=== PATIENT | female | born 1935 | race Caucasian/White ===

== ENCOUNTER 2017-08-01 13:10 | Inpatient (IN) | payer MEDICARE, OTHER ==
[~2017-08-01] VITALS: Ht 154.9 cm; Wt 56.9 kg
[2017-08-01] MEDS ORDERED: LISI-600 PO (13:34)
[2017-08-01] MEDS ORDERED: LIONS MANE (13:36)
[2017-08-01] MEDS ORDERED: LOPE-144 PO (13:36)
[2017-08-01] MEDS ORDERED: ESOM40CA30 PO (13:37)
[2017-08-01] MEDS ORDERED: ASPI-611 PO (13:38)
[2017-08-01] MEDS ORDERED: LIDOCAINE PATCH TOP (13:38)
[2017-08-01 14:22] LABS: BASOPHILS % (AUTO) 0.6 % (0-1); EOSINOPHILS % (AUTO) 0 % (0-6); LYMPHOCYTES # (AUTO) 1.7 X10'3 (1.1-4.8); MEAN CORPUSCULAR HEMOGLOBIN 30.9 PG (27.0-31.0); MEAN CORPUSCULAR HGB CONC 33.9 % (33.0-36.5); MEAN CORPUSCULAR VOLUME 91.1 FL (78-98); MEAN PLATELET VOLUME 8.8 FL (7.4-10.4); MONOCYTES # (AUTO) 0.5 X10'3 (0-0.9); MONOCYTES % (AUTO) 6.7 % (2-12); NEUTROPHILS # (AUTO) 5.3 X10'3 (1.8-7.7); NEUTROPHILS % (AUTO) 70.7 % (42-75); PRE OP HEMATOCRIT 40.1 % (35.0-45.0); PRE OP HEMOGLOBIN 13.6 g/dL (12.0-16.0); PRE OP PLATELET COUNT 261 X10'3 (140-440); RED CELL DISTRIBUTION WIDTH 13.4 % (11.5-14.5)
[2017-08-01 14:30] LABS: PRE OP PROTIME 10.5 SECONDS (9.0-12.0)
[2017-08-01 14:40] LABS: ALBUMIN 3.7 G/DL (3.4-5.0); ALBUMIN/GLOBULIN RATIO 1.1 (1.1-1.5); ALKALINE PHOSPHATASE 75 IU/L (46-116); BLOOD UREA NITROGEN 17 MG/DL (7-18); CALCIUM 9.1 MG/DL (8.5-10.1); CHLORIDE 105 MMOL/L (99-107); PRE OP ALT 11 U/L (30-65); PRE OP ANION GAP 6 (8-16); PRE OP AST 13 U/L (10-37); PRE OP BILIRUB, TOTAL 0.3 MG/DL (0.0-1.0); PRE OP GLUCOSE 124 MG/DL (70-104); PRE OP POTASSIUM 3.6 MMOL/L (3.4-5.1); PRE OP SODIUM 142 MMOL/L (135-145); TOTAL CARBON DIOXIDE 30.9 MMOL/L (24-32); TOTAL PROTEIN 7.1 G/DL (6.4-8.2); eGFR 53 ML/MIN
[2017-08-04] VITALS (12 sets, daily range): BP systolic 113–152; BP diastolic 60–98
[2017-08-04] MEDS ORDERED: NORMAL SALINE IV ONE ×2 (05:00→06:00)
[2017-08-04] MEDS ORDERED: TRANEXAMIC ACID IV ONE ×2 (05:00→06:00)
[2017-08-04] MEDS ORDERED: ringers solution, lacted 1,000 ML IV SCH ×2 (05:00→13:16)
[2017-08-04] MEDS ORDERED: vancomycin/NS 1 GM ADD-VANTAGE 250 ML X 1 DOSE IV ONE (05:00)
[2017-08-04] MEDS ORDERED: ceFAZolin 2gm in dextrose, iso 100 ML IV ONE (05:00)
[2017-08-04] MEDS ORDERED: famotidine 20mg tablet PO ONE (05:30)
[2017-08-04] MEDS ORDERED: morphine 4 MG/ML inj SYRINge IV PRN ×2 (13:20)
[2017-08-04] MEDS ORDERED: meperidine/PF 25mg/ml syringe IV PRN ×3 (13:20)
[2017-08-04] MEDS ORDERED: proCHLORperazine 10 MG/2 ml inj IV PRN (13:20)
[2017-08-04] MEDS ORDERED: ondansetron/PF 4mg/2ml inj IV PRN ×2 (13:20→20:45)
[2017-08-04] MEDS ORDERED: vancomycin 1,000mg inj ONE (17:03)
[2017-08-04] MEDS ORDERED: ketorolac trometh. 30mg/ml inj. ONE (17:03)
[2017-08-04] MEDS ORDERED: ROPIVAcaine 0.5% (5mg/ml) 30ml vial ONE ×2 (17:03→18:42)
[2017-08-04] MEDS ORDERED: fentaNYL/PF 50MCG/1 ML 2ML syringe ONE (18:41)
[2017-08-04] MEDS ORDERED: dexamethasone sod phosphate 10mg/ml inj ONE (18:42)
[2017-08-04] MEDS ORDERED: midazolam 2 mg/2 ml injection ONE (18:42)
[2017-08-04] MEDS ORDERED: sevoflurane 250ml liquid IH ONE (18:42)
[2017-08-04] MEDS ORDERED: ondansetron/PF 4mg/2ml inj ONE (18:42)
[2017-08-04] MEDS ORDERED: propofol inj 20 ML IV ONE (18:44)
[2017-08-04] MEDS ORDERED: LIDOcaine 1%/PF 5ML 10 MG/ML VIAL ONE (18:44)
[2017-08-04] MEDS: tranexamic acid inj. 1,000 MG in normal saline 100ml IV soln 90 ML IV SCH ×2 (18:50→19:50)
[2017-08-04] MEDS ORDERED: ePHEDrine 50MG/ML INJ. ONE (19:22)
[2017-08-04] MEDS: potassium cl 20mEq in 1/2 NS 1,000 ML IV SCH (20:43)
[2017-08-04] MEDS ORDERED: acetaminophen 325mg tablet PO PRN (20:45)
[2017-08-04] MEDS ORDERED: oxyCODONE IR 5mg (immed. release) tablet PO PRN (20:45)
[2017-08-04] MEDS ORDERED: diphenhydrAMINE 25mg capsule PO PRN ×2 (20:45)
[2017-08-04] MEDS ORDERED: LOPERAMIDE HCL PO PRN (20:45)
[2017-08-04] MEDS ORDERED: bisacodyl 10mg suppository rectal RC PRN (20:45)
[2017-08-04] MEDS ORDERED: magnesium hydroxide 30ml (MOM) UD suspension PO PRN (20:45)
[2017-08-04] MEDS ORDERED: HYDROmorphone inj. 0.5 MG/0.5 ML DISP.SYRIN IV PRN ×2 (20:45)
[2017-08-04] MEDS: sennosides 8.6mg tablet PO SCH (21:00)
[2017-08-04] MEDS: gabapentin 300mg capsule PO SCH (21:00)
[2017-08-04] MEDS ORDERED: loperamide 2mg capsule PO PRN (21:00)
[2017-08-04] MEDS ORDERED: HYDROmorphone 1 mg/ml syringe IV PRN ×2 (21:01)
[2017-08-04] MEDS ORDERED: tranexamic acid inj. 570 MG in normal saline 100ml IV soln 100 ML IV ONE (23:59)
[2017-08-05] VITALS (8 sets, daily range): BP systolic 107–140; BP diastolic 36–80
[2017-08-05] MEDS: ceFAZolin 1GM/D5W- ADD-VANTAGE 50 ML IV SCH ×2 (01:13→08:28)
[2017-08-05] MEDS: acetaminophen 325mg tablet PO SCH ×4 (03:18→20:22)
[2017-08-05] MEDS: ketorolac tromethamine 15mg/ml inj. IV SCH ×4 (03:19→20:21)
[2017-08-05] MEDS: potassium cl 20mEq in 1/2 NS 1,000 ML IV SCH ×3 (05:13→20:22)
[2017-08-05 07:18] LABS: BASOPHILS % (AUTO) 0 % (0-1); EOSINOPHILS % (AUTO) 0 % (0-6); HEMATOCRIT 35.9 % (35.0-45.0); HEMOGLOBIN 12.3 g/dl (12.0-16.0); LYMPHOCYTES # (AUTO) 0.6 X10'3 (1.1-4.8); LYMPHOCYTES % (AUTO) 5.1 % (21-51); MEAN CORPUSCULAR HEMOGLOBIN 31.9 PG (27.0-31.0); MEAN CORPUSCULAR HGB CONC 34.3 % (33.0-36.5); MEAN CORPUSCULAR VOLUME 92.8 FL (78-98); MEAN PLATELET VOLUME 9.4 FL (7.4-10.4); MONOCYTES # (AUTO) 0.4 X10'3 (0-0.9); MONOCYTES % (AUTO) 3.4 % (2-12); NEUTROPHILS # (AUTO) 10.5 X10'3 (1.8-7.7); NEUTROPHILS % (AUTO) 91.5 % (42-75); PLATELET COUNT 212 X10'3 (140-440); RED BLOOD COUNT 3.87 X10'6 (4.20-5.60); RED CELL DISTRIBUTION WIDTH 12.4 % (11.5-14.5); WHITE BLOOD COUNT 11.5 X10'3 (4.5-11.0)
[2017-08-05 07:44] LABS: ANION GAP 11 (8-16); CHLORIDE 104 MMOL/L (99-107); POTASSIUM 4.1 MMOL/L (3.5-5.1); SODIUM 139 MMOL/L (135-145); TOTAL CARBON DIOXIDE 24.1 MMOL/L (24-32)
[2017-08-05] MEDS ORDERED: vancomycin/NS 1 GM ADD-VANTAGE 250 ML IV SCH (08:00)
[2017-08-05] MEDS: lisinopril 20mg tablet PO SCH (08:00)
[2017-08-05] MEDS ORDERED: non-formulary drug (Aspirin (Aspir 81) 1 TAB) PO SCH (08:00)
[2017-08-05] MEDS: gabapentin 300mg capsule PO SCH ×3 (08:28→20:22)
[2017-08-05] MEDS: aspirin 81mg tablet.DR PO SCH (08:28)
[2017-08-05] MEDS ORDERED: aspirin 325mg tablet PO SCH (08:30)
[2017-08-05] MEDS: oxyCODONE IR 5mg (immed. release) tablet PO PRN (14:21)
[2017-08-05] MEDS: celeCOXIB 100mg capsule PO SCH (20:22)
[2017-08-05] MEDS: sennosides 8.6mg tablet PO SCH (20:22)
[2017-08-06] MEDS: acetaminophen 325mg tablet PO SCH ×2 (02:08→07:38)
[2017-08-06] MEDS: potassium cl 20mEq in 1/2 NS 1,000 ML IV SCH (04:43)
[2017-08-06 06:00] VITALS: BP 122/57
[2017-08-06 06:07] LABS: BASOPHILS % (AUTO) 0.5 % (0-1); EOSINOPHILS # (AUTO) 0.1 X10'3 (0-0.9); HEMATOCRIT 31.6 % (35.0-45.0); HEMOGLOBIN 10.7 g/dl (12.0-16.0); LYMPHOCYTES # (AUTO) 1.5 X10'3 (1.1-4.8); MEAN CORPUSCULAR HEMOGLOBIN 31.1 PG (27.0-31.0); MEAN CORPUSCULAR HGB CONC 33.9 % (33.0-36.5); MEAN CORPUSCULAR VOLUME 91.7 FL (78-98); MEAN PLATELET VOLUME 8.9 FL (7.4-10.4); MONOCYTES # (AUTO) 0.9 X10'3 (0-0.9); MONOCYTES % (AUTO) 9.8 % (2-12); NEUTROPHILS # (AUTO) 6.5 X10'3 (1.8-7.7); NEUTROPHILS % (AUTO) 71.7 % (42-75); PLATELET COUNT 188 X10'3 (140-440); RED BLOOD COUNT 3.45 X10'6 (4.20-5.60); RED CELL DISTRIBUTION WIDTH 13.6 % (11.5-14.5); WHITE BLOOD COUNT 9.1 X10'3 (4.5-11.0)
[2017-08-06] MEDS: celeCOXIB 100mg capsule PO SCH (07:37)
[2017-08-06] MEDS: aspirin 81mg tablet.DR PO SCH (07:37)
[2017-08-06] MEDS: gabapentin 300mg capsule PO SCH (07:37)
[2017-08-06] MEDS: lisinopril 20mg tablet PO SCH (07:38)
[2017-08-06] MEDS: oxyCODONE IR 5mg (immed. release) tablet PO PRN (07:39)
[2017-08-06 10:00] VITALS: BP 115/82
== END 2017-08-06 13:30 | disposition home or self-care (01) | DRG 483 ==
LOC: PAS IN 08-04 12:30 → EDSTATUS 08-04 16:45 → ORTHO 4S 08-04 21:57
PROVIDERS: ADMIT Orthopaedic Surgery; ATTEND Orthopaedic Surgery
PROC: 3E0T3BZ Introduction of Anesthetic Agent into Peripheral Nerves and Plexi, Percutaneous Approach (ICD-10-PCS; 2017-08-04)
PROC: 0LS40ZZ Reposition Left Upper Arm Tendon, Open Approach (ICD-10-PCS; 2017-08-04)
PROC: 0RRK00Z Replacement of Left Shoulder Joint with Reverse Ball and Socket Synthetic Substitute, Open Approach (ICD-10-PCS; principal; 2017-08-04 18:42)
DX: M19.012 Primary osteoarthritis, left shoulder (principal); D62 Acute posthemorrhagic anemia; K21.9 Gastro-esophageal reflux disease without esophagitis; M75.122 Complete rotator cuff tear or rupture of left shoulder, not specified as traumatic; F03.90 Unspecified dementia, unspecified severity, without behavioral disturbance, psychotic disturbance, mood disturbance, and anxiety; I10 Essential (primary) hypertension; Z79.82 Long term (current) use of aspirin; Z79.899 Other long term (current) drug therapy
CPT/HCPCS: 36415; 71046; 80051; 80053; 85025; 85610; 85730; 87070; 97110; 97116; 97162; 97530; A4565; A7000; J0690; J1100; J1170; J1885; J2001; J2250; J2405; J2704; J2795; J3010; J3370; J7030; J7040; J7120